=== PATIENT | female | born 1975 | race Caucasian/White ===

== ENCOUNTER → 2018-03-31 | Outpatient (CLI) | payer BC | END | disposition home or self-care (01) | LOC: KCIC MRI 16:31 | DX: M51.36 Other intervertebral disc degeneration, lumbar region (principal); M48.061 Spinal stenosis, lumbar region without neurogenic claudication; M25.78 Osteophyte, vertebrae | CPT/HCPCS: 72148 ==

== ENCOUNTER → 2018-04-15 | Outpatient (CLI) | payer BC ==
[2017-02-03 23:06] VITALS: BP 121/73
[~2018-04-15] MED LIST: CLON1TAB PO; FLUO40CA9 PO; HYDR-971 PO; OMEP20CA9 PO; ONDA4TAB10 PO; OXYC1TAB7 PO
[2018-04-15 12:20] LABS: BASO % 1 % (0-3); EOS # 0.1 x10^3/uL (0.0-0.7); EOS % 3 % (0-3); HEMATOCRIT 39.7 % (36.0-47.0); LYMPH % 42 % (24-48); MEAN CORPUSCULAR HEMOGLOBIN 36 pg (25-35); MEAN CORPUSCULAR HGB CONC 35 g/dL (31-37); MEAN CORPUSCULAR VOLUME 102 fL (79-100); MONO # 0.4 x10^3/uL (0.0-1.1); MONO % 8 % (0-9); NEUT # 2.2 x10^3uL (1.8-7.7); NEUT % 46 % (31-73); PLATELET COUNT 234 x10^3/uL (140-400); RED BLOOD COUNT 3.91 x10^6/uL (3.50-5.40); RED CELL DISTRIBUTION WIDTH 12.7 % (11.5-14.5); WHITE BLOOD COUNT 4.8 x10^3/uL (4.0-11.0)
[2018-04-15 12:43] LABS: ALBUMIN 3.2 g/dL (3.4-5.0); CALCIUM 8.4 mg/dL (8.5-10.1); GFR 61.4; POTASSIUM 3.7 mmol/L (3.5-5.1); TOTAL BILIRUBIN 0.5 mg/dL (0.2-1.0); TOTAL PROTEIN 6.3 g/dL (6.4-8.2)
== END | disposition home or self-care (01) ==
LOC: SURGPAT 11:45 → MERGE 13:30
PROVIDERS: ATTEND Neurological Surgery
DX: Z01.818 Encounter for other preprocedural examination (principal); M51.16 Intervertebral disc disorders with radiculopathy, lumbar region
CPT/HCPCS: 36415; 80053; 85025; 87641

== ENCOUNTER → 2018-04-20 | Day surgery (SDC) | payer BC ==
--- NOTE | 2018-04-15 14:19 | PREOP HP ---
DATE OF SERVICE: 04/20/2018. ANTICIPATED DATE OF SURGERY: 04/20/2018. HISTORY OF PRESENT ILLNESS: The patient is a pleasant 42-year-old who I have seen in the past related to her cervical surgery issues. She reports that beginning 2 months ago, she began to develop significant lower back pain which radiates in her left buttock and posterior thigh and leg. She notes numbness in the lateral aspect of the plantar surface of her left foot. She says her left foot and left leg feel heavy. She says she was getting out of bed and developed acute pain. That pain, if anything, has slowly worsened. She rates it as a 7-8/10. Virtually any activity markedly increases her pain. She has difficulty finding a comfortable position. She has been taking tramadol, without any benefit. She tried massages and heat without benefit. She has been resting in bed considerably over the last month and has not improved. PAST MEDICAL HISTORY: Includes arthritis, headaches, psychiatric care, tonsillitis and head and neck injury. PAST SURGICAL HISTORY: in 1984; in 1999; hysterectomy in 2002; ACDF, C5-C6, 2008 and cholecystectomy in 2006. FAMILY HISTORY: Cancer, diabetes, hypertension and spine problems. SOCIAL HISTORY: Employed at the [employer]. Current smoker. Drinks alcohol 1-2 times per week. Soda and tea daily. ALLERGIES: PERCOCET, ADHESIVE TAPE, NICKEL AND DEMEROL. CURRENT MEDICATIONS: Prozac, Klonopin, tramadol and Prilosec. REVIEW OF SYSTEMS: A 12-point review of systems was obtained and is noncontributory, except for that mentioned above. PHYSICAL EXAMINATION: NEUROSURGERY EXAMINATION: GENERAL APPEARANCE: Alert, pleasant, in [id number] distress. HEENT: Head normocephalic and atraumatic. SKIN: Warm and dry. MUSCULOSKELETAL: Lumbar paraspinal muscle bulk is normal, restricted range of motion of lumbar spine, moderate tenderness of lower lumbar spine with palpation, normal range of motion of the lower extremities bilaterally. EXTREMITIES: No clubbing, cyanosis or edema. NEUROLOGIC: Alert and oriented x 3, normal recent and remote memory, strength 5/5 in bilateral lower extremities. Sensory is intact to light touch in bilateral lower extremities, except for decrease in the lateral aspect of her left foot and the plantar surface of her left foot; reflexes are present and symmetric in lower extremities bilaterally, except for an absent left ankle jerk; markedly positive straight leg raising on the left, relieved by Lasegue's maneuver; negative straight leg raising on the right and antalgic gait favoring her left leg. IMAGING: I reviewed the lumbar MRI scan from 03/2018. The principal abnormality is at L5-S1, where there is a very large disc extrusion and possible disc sequestration, extending below the intervertebral disc space centrally and in the left lateral recess. The disc herniation is greater than 2 cm in transverse dimensions. There is severe central canal stenosis as well as severe left stenosis. Because of the size of the herniation, there is also contact on the descending right S2 and S3 nerve roots. ASSESSMENT: 1. Intervertebral disc disorders with radiculopathy, lumbosacral region. 2. Spinal stenosis of, lumbosacral region. PLAN: The patient is markedly symptomatic with left lumbar radiculopathy from a very large disc extrusion at L5-S1. Based on the size of her herniation, I do not feel she would improve significantly with epidural steroid injections or even tolerate lumbar physical therapy. My recommendation at this point is that she undergo lumbar microsurgery at L5-S1 to remove the large herniation to decompress the spinal canal with lumbar microdiscectomy. I did discuss this with her in detail. I outlined the risk of surgery and I explained that she would have a higher risk of nerve root injury or possible bowel or bladder injury based on the size of the herniation. I outlined the expected postoperative course. She understands. We will move forward and make arrangements for her. DOMINIQUE RANDLE MD DR: GEOVANNA/eric JOB#: [id number] / [id number] PEARL
[~2018-04-20] VITALS: Ht 154.9 cm; Wt 81.6 kg
[~2018-04-20] MED LIST changes: +0.9 % SODIUM CHLORIDE 20 ML VIAL. IJ ONE; +BACITRACIN 50,000 UNIT in IV NORMAL SALINE 1000ML BAG 1,000 ML IRR ONE; +BUPIVAC MPF-EPI 0.5%-1:200000 30 ML VIAL. INJ ONE; +DESFLURANE > 120 MINUTES IH ONE; +DEXAMETHASONE SOD PHOS 20 MG/5 ML VIAL. ONE; +DOCU-109 PO; +GELATIN SPONGE SIZE 100. ONE; +GLYCOPYRROLATE 1 MG/5 ML VIAL. ONE; +HYDROcodone/APAP 5/325MG 1 TAB TABLET PO PRN; +IV RINGERS,LACTATED 1000ML 1,000 ML IV SCH; +KETOROLAC 60 MG/2 ML INJ FOR OR. ONE; +LIDOCAINE 1% PF 2 ML VIAL. ID PRN; +LIDOCAINE 2% PF Vial for OR 5 ML VIAL. ONE; +MIDAZOLAM HCL/PF 2 MG/2 ML VIAL. ONE; +MINERAL OIL/PETROLATUM,WHITE OPHTH OINT 3.5GM TUBE. ONE; +NEOSTIGMINE METHYLSULFATE 5 MG/5 ML SYRINGE. ONE; +ONDANSETRON PF 4 MG/2 ML VIAL. IV PRN; +ONDANSETRON PF 4 MG/2 ML VIAL. ONE; +PHENYLEPHRINE 10 MG/ML VIAL. ONE; +PHENYLEPHRINE in 0.9% NACL PF 1 MG/10 ML SYRINGE. IV ONE; +PROPOFOL 20 ML IV ONE; +PROPOFOL 50 ML IV ONE; +REMIFENTANIL 2 MG VIAL. IV ONE; +ROCURONIUM 50 MG/5 ML VIAL. ONE; +THROMBIN TOPICAL 20,000 UNIT SPRAY.SYRN KIT TP ONE; +ceFAZolin 2GM PREMIX 2 GM/50 ML BAG IV ONE; +fentaNYL PF VIAL 100 MCG/2 ML VIAL ONE
--- NOTE | 2018-04-20 10:30 | PREOP HP ---
duplicate DOMINIQUE Kee RANDLE MD DR: Hector JOB#: [id number] / [id number] PEARL
--- NOTE | 2018-04-20 14:42 | DISCH ---
DISCHARGE INSTRUCTIONS Condition on Discharge Condition on Discharge: Stable Activity After Discharge Activity Instructions for Disc: Activity as tolerated, Avoid exertion Other activity instructions: no driving for a Bathing Instructions: Shower-keep dressing dry Lifting Instructions after Dis: No heavy lifting, No pulling or pushing, Do not lift >10 pounds Exercise Instruction after Dis: Exercise per therapy Driving Instructions after Dis: Other, see below Weight Bearing Status after Di: As tolerated Diet after Discharge Diet after Discharge: Regular Diet Texture: Regular Swallowing Supervision: None needed Wound Incision Care Wound/Incision Care: Ice to area for comfort, May get incision wet Other wound/incision instructi: may remove dressing in 48 hrs if dry, then may shower- no soaking Contacting the DRDelphine after DC Call your doctor for: Concerns you may have Follow-Up Follow up with: Dr. Randle's nurse in 2 weeks [phone] Treatment/Equipment after DC Adaptive Equipment Issued: None DOMINIQUE RANDLE MD Apr 20, 2018 14:42
--- NOTE | 2018-04-20 16:17 | OP ---
DATE OF SURGERY: 04/20/2018 PREOPERATIVE DIAGNOSES: Herniated lumbar disc, L5-S1 left with severe left lumbar radiculopathy. POSTOPERATIVE DIAGNOSIS: Herniated lumbar disc, L5-S1 left with severe left lumbar radiculopathy. OPERATION PERFORMED: Hemilaminotomy and microdiscectomy L5-S1, left. The operation was done with EMG monitoring, fluoroscopy, microscopic dissection. SURGEON: Shmuel Randle M.D. GUEST SERVICE MANAGER: ABIMBOLA Beauchamp assisted with surgery. She assisted with the exposure, the microdiscectomy as well as closure. OPERATIVE INDICATIONS: The patient is a very pleasant 42-year-old who developed severe intractable back and left leg pain. On imaging studies, she was found to have a very large extruded fragment, which occupied about 50% of the canal at L5-S1 and extended inferiorly. I recommended lumbar microsurgery. I spoke about the surgery and the risks, technique and outlined the risks carefully and methodically for her. She and her father understood well. She wished to go ahead. DESCRIPTION OF PROCEDURE: Following general endotracheal anesthesia, she was positioned prone on the [place] table. Lumbar region prepped and draped in the standard fashion. KARUNA hose and AV impulse boots were applied for DVT prophylaxis. The microscope was draped. Fluoroscopy was draped and brought into the field. Monitoring was established. Ancef 2 grams was given less than 1 hour prior the initiation of the surgery. Under fluoroscopic guidance, a midline incision was made directly over the L5-S1 interspace. I carried this slightly further inferiorly to allow for increased inferior exposure. I dissected down to skin and subcutaneous tissue, reflected the paraspinal muscles and placed a retractor, confirmed my position fluoroscopically, brought in the microscope during this time and used microscopic technique from here forward. I burred down a generous hemilaminotomy. I made a very large foraminotomy and carried my exposure quite far inferiorly over the S1 region. I also created some lateral exposure just above the S1 pedicle and then peeled away the thickened ligamentum flavum and trimmed this away from medial to lateral and exposed the dura and the exiting root. I gently retracted the root medially. There was considerable scarring along with some very large epidural veins, which I coagulated and I created an exposure on the disc inferiorly. I gently reusing the nerve, retracted it medially and then began to piecemeal remove multiple small fragments, which allowed better exposure again with gentle retraction and then, I removed 3 large disc fragments that fully decompress the entire region. One of these came up from inferiorly and fully decompressed the region. I then incised the annulus, performed a diskectomy with pituitary rongeurs and fully decompressing this region medially. There was some calcified disc, which was bulging posteriorly, but the main bulk of the disc was removed and the dura relaxed quite nicely. I irrigated copiously with antibiotic solution, explored carefully and assured myself there were no retained fragments. We closed the wound then in layers with absorbable suture after excellent hemostasis had been obtained. The skin was closed with 4-0 subcuticular stitch. The operation went very well and the patient was awakened uneventfully. I was quite pleased with the surgery. SHMUEL RANDLE MD DR: GEOVANNA/eric JOB#: [id number] / [id number] PEARL
[2018-04-20 16:45] VITALS: BP 119/82
== END | disposition home or self-care (01) ==
LOC: SURG 10:54 → MERGE 12:30
PROVIDERS: ATTEND Neurological Surgery
DX: M51.17 Intervertebral disc disorders with radiculopathy, lumbosacral region (principal); M48.061 Spinal stenosis, lumbar region without neurogenic claudication; J44.9 Chronic obstructive pulmonary disease, unspecified; M19.90 Unspecified osteoarthritis, unspecified site; F32.9 Major depressive disorder, single episode, unspecified; K21.9 Gastro-esophageal reflux disease without esophagitis; F41.9 Anxiety disorder, unspecified; F17.210 Nicotine dependence, cigarettes, uncomplicated; Z90.49 Acquired absence of other specified parts of digestive tract; Z90.710 Acquired absence of both cervix and uterus; Z90.722 Acquired absence of ovaries, bilateral; Z98.890 Other specified postprocedural states
CPT/HCPCS: 63030; 76000; 97161; J0690; J1100; J1885; J2001; J2250; J2370; J2405; J2704; J2710; J3010; J3490; J7030; J7120; A7015

== ENCOUNTER → 2018-05-16 | Outpatient (CLI) | payer BC ==
[2018-05-09 11:00] VITALS: BP 112/47
[~2018-05-16] MED LIST changes: -0.9 % SODIUM CHLORIDE 20 ML VIAL. IJ ONE; -BACITRACIN 50,000 UNIT in IV NORMAL SALINE 1000ML BAG 1,000 ML IRR ONE; -BUPIVAC MPF-EPI 0.5%-1:200000 30 ML VIAL. INJ ONE; +CLON0.5T11 PO; +DAPT350V IV; -DESFLURANE > 120 MINUTES IH ONE; -DEXAMETHASONE SOD PHOS 20 MG/5 ML VIAL. ONE; -GELATIN SPONGE SIZE 100. ONE; -GLYCOPYRROLATE 1 MG/5 ML VIAL. ONE; -HYDROcodone/APAP 5/325MG 1 TAB TABLET PO PRN; -IV RINGERS,LACTATED 1000ML 1,000 ML IV SCH; -KETOROLAC 60 MG/2 ML INJ FOR OR. ONE; -LIDOCAINE 1% PF 2 ML VIAL. ID PRN; -LIDOCAINE 2% PF Vial for OR 5 ML VIAL. ONE; +LINE600T PO; -MIDAZOLAM HCL/PF 2 MG/2 ML VIAL. ONE; -MINERAL OIL/PETROLATUM,WHITE OPHTH OINT 3.5GM TUBE. ONE; -NEOSTIGMINE METHYLSULFATE 5 MG/5 ML SYRINGE. ONE; -ONDANSETRON PF 4 MG/2 ML VIAL. IV PRN; -ONDANSETRON PF 4 MG/2 ML VIAL. ONE; -PHENYLEPHRINE 10 MG/ML VIAL. ONE; -PHENYLEPHRINE in 0.9% NACL PF 1 MG/10 ML SYRINGE. IV ONE; -PROPOFOL 20 ML IV ONE; -PROPOFOL 50 ML IV ONE; -REMIFENTANIL 2 MG VIAL. IV ONE; -ROCURONIUM 50 MG/5 ML VIAL. ONE; +SULF-143 PO; -THROMBIN TOPICAL 20,000 UNIT SPRAY.SYRN KIT TP ONE; -ceFAZolin 2GM PREMIX 2 GM/50 ML BAG IV ONE; -fentaNYL PF VIAL 100 MCG/2 ML VIAL ONE
== END | disposition home or self-care (01) ==
LOC: PMGWOUND 13:02
PROVIDERS: ATTEND Emergency Medicine Undersea and Hyperbaric Medicine
DX: T81.31XD Disruption of external operation (surgical) wound, not elsewhere classified, subsequent encounter (principal); M19.90 Unspecified osteoarthritis, unspecified site; F41.9 Anxiety disorder, unspecified; F17.210 Nicotine dependence, cigarettes, uncomplicated; F31.9 Bipolar disorder, unspecified; K21.9 Gastro-esophageal reflux disease without esophagitis; J44.9 Chronic obstructive pulmonary disease, unspecified; E66.9 Obesity, unspecified; Z68.33 Body mass index [BMI] 33.0-33.9, adult; Z90.49 Acquired absence of other specified parts of digestive tract; Z90.710 Acquired absence of both cervix and uterus; Z85.41 Personal history of malignant neoplasm of cervix uteri; Y83.8 Other surgical procedures as the cause of abnormal reaction of the patient, or of later complication, without mention of misadventure at the time of the procedure
CPT/HCPCS: 99205

== ENCOUNTER 2018-05-19 10:16 | Inpatient (IN) | payer BC ==
[~2018-05-19] VITALS: Ht 154.9 cm; Wt 80.5 kg
[~2018-05-19 10:16] MED LIST changes: -DAPT350V IV
[2018-05-19] MEDS ORDERED: ACETAMINOPHEN 325 MG TABLET. PO PRN (14:45)
[2018-05-19] MEDS ORDERED: NALOXONE 0.4 MG/ML VIAL. IV PRN (14:45)
[2018-05-19] MEDS ORDERED: CALCIUM CARBONATE 500 MG TAB.CHEW PO PRN (14:45)
[2018-05-19] MEDS ORDERED: HYDROcodone/APAP 5/325MG 1 TAB TABLET PO PRN (14:45)
[2018-05-19] MEDS ORDERED: ONDANSETRON ODT 4 MG TAB.RAPDIS. PO PRN (14:45)
[2018-05-19] MEDS ORDERED: 0.9 % SODIUM CHLORIDE 10 ML DISP.SYRIN. IV PRN (14:45)
[2018-05-19] MEDS ORDERED: diphenhydrAMINE HCL 25 MG CAPSULE PO PRN (14:45)
[2018-05-19] MEDS ORDERED: MAG HYDROX/ALUMINUM HYD/SIMETH 30 ML ORAL.SUSP PO PRN (14:45)
[2018-05-19] MEDS ORDERED: diphenhydrAMINE 50 MG/ML VIAL IV PRN (14:45)
[2018-05-19 15:00] VITALS: BP 112/65
[2018-05-19 15:29] LABS: BASO % 1 % (0-3); EOS # 0.1 x10^3/uL (0.0-0.7); EOS % 1 % (0-3); HEMATOCRIT 35.5 % (36.0-47.0); HEMOGLOBIN 12.2 g/dL (12.0-15.5); LYMPH # 1.5 x10^3/uL (1.0-4.8); LYMPH % 28 % (24-48); MEAN CORPUSCULAR HEMOGLOBIN 36 pg (25-35); MEAN CORPUSCULAR HGB CONC 35 g/dL (31-37); MEAN CORPUSCULAR VOLUME 103 fL (79-100); MONO # 0.3 x10^3/uL (0.0-1.1); MONO % 5 % (0-9); NEUT # 3.6 x10^3uL (1.8-7.7); NEUT % 65 % (31-73); PLATELET COUNT 212 x10^3/uL (140-400); RED BLOOD COUNT 3.44 x10^6/uL (3.50-5.40); RED CELL DISTRIBUTION WIDTH 13.2 % (11.5-14.5); WHITE BLOOD COUNT 5.5 x10^3/uL (4.0-11.0)
[2018-05-19 15:44] LABS: CALCIUM 9.1 mg/dL (8.5-10.1); CREATININE 0.8 mg/dL (0.6-1.0); GFR 79.4; POTASSIUM 3.6 mmol/L (3.5-5.1)
[2018-05-19] MEDS ORDERED: VANCOMYCIN PER PHARMACY MC PRN (15:45)
--- NOTE | 2018-05-19 15:54 | RAD ---
CT of the abdomen and pelvis without contrast, 05/19/2018: HISTORY: Postop infection Noncontrast scans were obtained and compared to a study from 05/05/2018. There is a vacuum disc phenomena with disc space narrowing and marginal spurring at L5-S1. There is a laminectomy defect on the left at L5-S1. There is a persistent medium density material within the left side of the spinal canal at the disc level extending inferiorly, obscuring the normal epidural fat. This density extends into the laminectomy defect. The proximal left S1 nerve root sleeve cannot be visualized within this process. This again may represent postsurgical granulation tissue, hemorrhage or a residual disc fragment. Streaky densities in the subcutaneous soft tissues posteriorly have improved. There is no discrete fluid collection seen in this region to suggest a drainable abscess. No significant posterior disc protrusion, central spinal stenosis or foraminal stenosis is seen at L1-2, L2-3 or L3-4. At L4-5 there is mild broad-based posterior disc bulging. There is mild posterior spurring, worse on the right. There is posterior ligamentous thickening due to facet joint arthropathy. The combination of findings is causing moderate inferior foraminal narrowing on the right and mild narrowing on the left. There is borderline narrowing of the central spinal canal. IMPRESSION: 1. Unchanged postsurgical findings on the left at L5-S1 as described above. No discrete drainable abscess is evident. 2. Improving subcutaneous inflammation posteriorly. PQRS Compliance Statement: One or more of the following individualized dose reduction techniques were utilized for this examination: 1. Automated exposure control 2. Adjustment of the mA and/or kV according to patient size 3. Use of iterative reconstruction technique Electronically signed by: Tony Cheung MD (05/19/2018 3:51 PM) [facility]
[2018-05-19] MEDS: CEFEPIME HCL IV Push 2 GM VIAL. IVP SCH ×2 (16:00→22:00)
[2018-05-19] MEDS ORDERED: VANCOMYCIN 2 GM in IV NORMAL SALINE 500ML BAG 500 ML IV ONE (16:00)
[2018-05-19 16:14] LABS: ALBUMIN 3.6 g/dL (3.4-5.0); DIRECT BILIRUBIN 0.1 mg/dL (0.0-0.2); TOTAL BILIRUBIN 0.4 mg/dL (0.2-1.0); TOTAL PROTEIN 6.8 g/dL (6.4-8.2)
[2018-05-19] MEDS: clonazePAM 0.5 MG TABLET PO PRN (16:18)
[2018-05-19 16:33] LABS: C-REACTIVE PROTEIN 1.8 mg/L (0-3.3)
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
[2018-05-19] MEDS ORDERED: NICOTINE 14MG PATCH. TD PRN (19:00)
[2018-05-19 19:20] VITALS: BP 111/68
[2018-05-19] MEDS: ZOLPIDEM 5 MG TABLET. PO PRN (20:09)
[2018-05-19] MEDS: HYDROcodone/APAP 5/325MG 1 TAB TABLET PO PRN (20:13)
[2018-05-19] MEDS: DOCUSATE SODIUM 100 MG CAPSULE. PO SCH (20:16)
[2018-05-19] MEDS ORDERED: LINEZOLID 600 MG PO SCH (21:00)
[2018-05-19] MEDS ORDERED: CEFEPIME HCL 2 GM in IV DEXTROSE 5% 100ML 100 ML IV SCH (22:00)
[2018-05-19 23:14] VITALS: BP 100/59
[2018-05-20] MEDS: HYDROcodone/APAP 5/325MG 1 TAB TABLET PO PRN ×4 (00:55→18:45)
[2018-05-20 03:18] VITALS: BP 93/56
[2018-05-20] MEDS: CEFEPIME HCL IV Push 2 GM VIAL. IVP SCH (06:00)
[2018-05-20 07:00] VITALS: BP 115/66
[2018-05-20] MEDS: FLUoxetine HCL 20 MG CAPSULE PO SCH (08:09)
[2018-05-20] MEDS: PANTOPRAZOLE 40 MG TABLET.DR. PO SCH (08:09)
[2018-05-20] MEDS: DOCUSATE SODIUM 100 MG CAPSULE. PO SCH ×2 (08:10→21:52)
[2018-05-20] MEDS ORDERED: VANCOMYCIN 2 GM in IV NORMAL SALINE 500ML BAG 500 ML IV ONE (09:00)
[2018-05-20 11:00] VITALS: BP 106/58
[2018-05-20] MEDS: clonazePAM 0.5 MG TABLET PO PRN ×2 (12:12→20:09)
--- NOTE | 2018-05-20 12:38 | PDOC ---
Provider Note Provider Note Pt seen and dictated ID CONSULT [id number] OK TO DC HOME Midline today Weekly labs CBC/BUN/Creat/ESR/CRP while on antibiotics Daptomycin IV 6mg /kg /day for 2-3 weeks Can be dc home if ok with neurosurgery Appt with us on 06/02 at 3 pm D/W Dr Harley D/W her father at length JOSE MCCLOUD MD May 20, 2018 12:38
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
[2018-05-20 14:50] VITALS: BP 102/44
--- NOTE | 2018-05-20 16:24 | DISCH ---
DISCHARGE WITH HOME HEALTH DISCHARGE INFORMATION: Condition on Discharge: Stable CODE STATUS: Code Status: Full HOME HEALTH: Face to Face: I certify this patient is under my care and that I, or a nurse practitioner or physician's student assistant working with me, had a face to face encounter that meets the physician face to face encounter requirements with this patient on []. Group Home For: IV Infusion Therapy POST DISCHARGE ORDERS: Activity Instructions for Disc: Activity as tolerated, Avoid exertion Weight Bearing Status after Di: As tolerated Bathing Instructions: Shower-keep dressing dry DIET AFTER DISCHARGE: Regular Wound/Incision Care: Ice to area for comfort, Change dressing, Reinforce dressing PRN Other wound/incision instructi: dressing changes daily and as needed FOLLOW-UP: Follow up with: Dr. Randle next week [phone] Follow Up With: Dr. Vargas 10- TREATMENT/EQUIPMENT ORDERS: Adaptive Equipment Issued: None CERTIFICATION STATEMENT: Certification Statement: Certification Statement: Based on the above finding, I certify that this patient is confined to the home and needs intermittent retirement care, physical therapy and/or speech therapy, or continues to need occupational therapy.~ This patient is under my care, and I have initiated the establishment of the plan of care.~ This patient will be followed by myself or a community physician who will periodically review the plan of care. Home Meds Active Scripts Daptomycin (Daptomycin) 350 Mg Vial, 350 MG IV DAILY for 60 Days, #60 EACH Prov:DOMINIQUE RANDLE MD 05/20/18 Docusate Sodium (COLACE) 100 Mg Capsule, 100 MG PO BID, #60 CAP Prov:DOMINIQUE RANDLE MD 04/20/18 Hydrocodone/Apap 5-325 (NORCO 5-325 TABLET) 1 Each Tablet, 1 TAB PO PRN Q6HRS PRN for PAIN, #20 TAB 0 Refills Prov:SHER SAMUEL DO 02/03/17 Reported Medications Clonazepam (CLONAZEPAM) 0.5 Mg Tablet, 1 TAB PO PRN TID, #90 TAB 05/05/18 Omeprazole (OMEPRAZOLE) 20 Mg Capsule.dr, 20 MG PO DAILY, CAP 04/15/18 Fluoxetine Hcl (PROZAC) 40 Mg Capsule, 40 MG PO DAILY, CAP 04/15/18 Discontinued Scripts Linezolid (ZYVOX) 600 Mg Tablet, 600 MG PO BID, #28 TAB Prov:DOMINIQUE RANDLE MD 05/09/18 DOMINIQUE RANDLE MD May 20, 2018 16:24
[2018-05-20] MEDS ORDERED: DAPT350V IV (16:26)
--- NOTE | 2018-05-20 17:25 | PDOC ---
PROGRESS NOTES Subjective Subjective resting in bed awaiting Midline IV cath back pain, controlled with medication still some leg numbness but pain is resolved Objective Objective Vital Signs Date Time Temp Pulse Resp B/P (MAP) Pulse Ox O2 Delivery O2 Flow Rate FiO2 05/20/18 14:50 97.5 50 18 102/44 (63) 96 Room Air 97.5 Intake and Output 05/20/18 07:00 Intake Total 720 ml Balance 720 ml Intake Oral 720 ml # Voids 7 Physical Exam General: Alert, Oriented X3, Cooperative, No acute distress Skin: Other (Dressing intact) Plan Plan of Care awaiting midline cath, planned for this evening december dc after this is placed will have HH for IV antibiotics per ID she will follow up in our office next week Comment Review of Relevant I have reviewed the following items steff (where applicable) has been applied. Labs Laboratory Tests Test 05/19/18 15:00 White Blood Count 5.5 x10^3/uL (4.0-11.0) Red Blood Count 3.44 x10^6/uL (3.50-5.40) Hemoglobin 12.2 g/dL (12.0-15.5) Hematocrit 35.5 % (36.0-47.0) Mean Corpuscular Volume 103 fL (79-100) Mean Corpuscular Hemoglobin 36 pg (25-35) Mean Corpuscular Hemoglobin Concent 35 g/dL (31-37) Red Cell Distribution Width 13.2 % (11.5-14.5) Platelet Count 212 x10^3/uL (140-400) Neutrophils (%) (Auto) 65 % (31-73) Lymphocytes (%) (Auto) 28 % (24-48) Monocytes (%) (Auto) 5 % (0-9) Eosinophils (%) (Auto) 1 % (0-3) Basophils (%) (Auto) 1 % (0-3) Neutrophils # (Auto) 3.6 x10^3uL (1.8-7.7) Lymphocytes # (Auto) 1.5 x10^3/uL (1.0-4.8) Monocytes # (Auto) 0.3 x10^3/uL (0.0-1.1) Eosinophils # (Auto) 0.1 x10^3/uL (0.0-0.7) Basophils # (Auto) 0.0 x10^3/uL (0.0-0.2) Erythrocyte Sedimentation Rate 10 (0-25) Sodium Level 140 mmol/L (136-145) Potassium Level 3.6 mmol/L (3.5-5.1) Chloride Level 102 mmol/L (98-107) Carbon Dioxide Level 27 mmol/L (21-32) Anion Gap 11 (6-14) Blood Urea Nitrogen 11 mg/dL (7-20) Creatinine 0.8 mg/dL (0.6-1.0) Estimated GFR (Cockcroft-Gault) 79.4 Glucose Level 120 mg/dL (70-99) Calcium Level 9.1 mg/dL (8.5-10.1) Total Bilirubin 0.4 mg/dL (0.2-1.0) Direct Bilirubin 0.1 mg/dL (0.0-0.2) Aspartate Amino Transf (AST/SGOT) 9 U/L (15-37) Alanine Aminotransferase (ALT/SGPT) 22 U/L (14-59) Alkaline Phosphatase 66 U/L (46-116) C-Reactive Protein, Quantitative 1.8 mg/L (0-3.3) Total Protein 6.8 g/dL (6.4-8.2) Albumin 3.6 g/dL (3.4-5.0) Medications Current Medications Acetaminophen (Tylenol) 650 mg PRN Q6HRS PRN PO MILD PAIN / TEMP; Start at 14:45 Al Hydroxide/Mg Hydroxide (Mylanta Plus Xs) 30 ml PRN Q3HRS PRN PO HEARTBURN / GAS; Start 05/19/18 at 14:45 Calcium Carbonate/ Glycine (Tums) 500 mg PRN Q3HRS PRN PO INDIGESTION; Start at 14:45 Diphenhydramine HCl (Benadryl) 25 mg PRN Q6HRS PRN PO ITCHING; Start 05/19/18 at 14:45 Diphenhydramine HCl (Benadryl) 25 mg PRN Q6HRS PRN IV ITCHING; Start 05/19/18 at 14:45 Zolpidem Tartrate (Ambien) 5 mg PRN QHS PRN PO INSOMNIA, MAY REPEAT IN 1HR Last administered on 05/19/18at 20:09; Start 05/19/18 at 14:45 Naloxone HCl (Narcan) 0.1 mg PRN Q2MIN PRN IV ADMIN; Start 05/19/18 at 14:45 Sodium Chloride (Normal Saline Flush) 3 ml QSHIFT PRN IV AFTER MEDS AND BLOOD DRAWS; Start 05/19/18 at 14:45 Acetaminophen/ Hydrocodone Bitart (Lortab 5/325) 1 tab PRN Q4HRS PRN PO MILD PAIN; Start 05/19/18 at 14:45 Acetaminophen/ Hydrocodone Bitart (Lortab 5/325) 2 tab PRN Q4HRS PRN PO MODERATE PAIN, SEVERE PAIN Last administered on 05/20/18at 12:12; Start 05/19/18 at 14:45 Clonazepam (KlonoPIN) 0.5 mg PRN TID PRN PO ANXIETY / AGITATION Last administered on 05/20/18at 12:12; Start 05/19/18 at 14:45 Docusate Sodium (Colace) 100 mg BID PO ; Start 05/19/18 at 21:00 Fluoxetine HCl (PROzac) 40 mg DAILY PO Last administered on 05/20/18at 08:09; Start 05/20/18 at 09:00 Non-Formulary Medication (Linezolid (Zyvox)) 600 mg BID PO ; Start 05/19/18 at 21:00; Status UNV Pantoprazole Sodium (Protonix) 40 mg DAILYAC PO Last administered on 05/20/18at 08:09; Start 05/20/18 at 07:30 Ondansetron HCl (Zofran Odt) 4 mg PRN Q8HRS PRN PO NAUSEA/VOMITING; Start 05/19 at 14:45 Vancomycin HCl 1 gm/Sodium Chloride 250 ml @ 250 mls/hr Q12H IV ; Start at 21:00; Stop 05/20/18 at 21:00; Status DC Cefepime HCl 2 gm/ Dextrose 100 ml @ 200 mls/hr Q8HRS IV ; Start 05/19/18 at 22 :00; Status UNV Cefepime HCl (Maxipime) 2 gm Q8HRS IVP ; Start 05/19/18 at 16:00; Stop 05/20/18 at 12:16; Status DC Vancomycin HCl 2 gm/Sodium Chloride 500 ml @ 250 mls/hr 1X ONCE IV ; Start at 16:00; Stop 05/20/18 at 12:16; Status DC Vancomycin HCl (Vanco Per Pharmacy) 1 each PRN DAILY PRN MC SEE COMMENTS Last administered on 05/19/18at 18:46; Start 05/19/18 at 15:45; Stop 05/20/18 at 12:21 ; Status DC Nicotine (Nicoderm Cq 14mg) 1 patch PRN DAILY PRN TD SMOKING CESSATION Last administered on 05/20/18at 08:53; Start 05/19/18 at 19:00 Vancomycin HCl 2 gm/Sodium Chloride 500 ml @ 250 mls/hr 1X ONCE IV ; Start at 09:00; Stop 05/20/18 at 12:16; Status DC Daptomycin 480 mg/ Sodium Chloride 50 ml @ 100 mls/hr Q24H IV ; Start 05/20/18 at 14:00 Lactobacillus Rhamnosus (Culturelle) 1 cap BID PO ; Start 05/20/18 at 21:00 Influenza Virus Vaccine (Afluria Trivalent 8971-7530 Syringe) 0.5 ml ONCE ONCE VAX IM Last administered on 05/20/18at 15:45; Start 05/20/18 at 14:30; Stop at 14:31; Status DC Active Scripts Active Zyvox (Linezolid) 600 Mg Tablet 600 Mg PO BID Colace (Docusate Sodium) 100 Mg Capsule 100 Mg PO BID [place] 5-325 Tablet (Acetaminophen/Hydrocodone Bitart) 1 Each Tablet 1 Tab PO PRN Q6HRS PRN Reported Clonazepam 0.5 Mg Tablet 1 Tab PO PRN TID Omeprazole 20 Mg Capsule. 20 Mg PO DAILY Prozac (Fluoxetine Hcl) 40 Mg Capsule 40 Mg PO DAILY Vitals/I & O Vital Sign - Last 24 Hours 05/19/18 05/19/18 05/19/18 05/19/18 19:20 20:00 20:13 23:14 Temp 98.0 98.1 98.0 98.1 Pulse 60 61 Resp 18 20 18 B/P (MAP) 111/68 (82) 100/59 (73) Pulse Ox 98 98 97 O2 Delivery Room Air Room Air Room Air Room Air 9/21/18 05/20/18 05/20/18 05/20/18 00:55 01:55 03:18 07:00 Temp 97.7 97.6 97.7 97.6 Pulse 60 63 Resp B/P (MAP) 93/56 (68) 115/66 (82) Pulse Ox 97 98 100 O2 Delivery Room Air Room Air Room Air 05/20/18 05/20/18 05/20/18 05/20/18 07:45 08:10 11:00 12:12 Temp 98.1 98.1 Pulse 52 Resp 16 B/P (MAP) 106/58 (74) Pulse Ox 98 97 97 O2 Delivery Room Air Room Air Room Air Room Air 05/20/18 05/20/18 13:17 14:50 Temp 97.5 97.5 Pulse 50 Resp 18 B/P (MAP) 102/44 (63) Pulse Ox 97 96 O2 Delivery Room Air Room Air Intake and Output 05/19/18 05/19/18 05/20/18 15:00 23:00 07:00 Intake Total 720 ml Balance 720 ml DOMINIQUE RANDLE MD May 20, 2018 17:25
[2018-05-20 19:00] VITALS: BP 110/59
[2018-05-20] MEDS: ZOLPIDEM 5 MG TABLET. PO PRN ×2 (20:12→21:52)
[2018-05-20] MEDS ORDERED: IBUPROFEN 400 MG TABLET. PO PRN (20:45)
[2018-05-20] MEDS ORDERED: VANCOMYCIN 1 GM in IV NORMAL SALINE 250ML 250 ML IV SCH (21:00)
[2018-05-20] MEDS: LACTOBACILLUS RHAMNOSUS GG 1 CAPSULE. PO SCH (21:52)
[2018-05-20] MEDS: NORMAL SALINE IV SCH (21:54)
[2018-05-20] MEDS: DAPTOMYCIN IV SCH (21:54)
--- NOTE | 2018-05-20 22:44 | RAD ---
AP portable chest radiograph 05/20/2018 Clinical History: PICC line placement. An AP erect portable digital radiograph of the chest was obtained. No previous studies are available for comparison. A right arm PICC has been placed. The tip of this catheter extends to overlie the superior vena cava. The cardiac and mediastinal silhouettes are within normal limits in size and configuration. No acute pulmonary infiltrate is seen. No pleural effusion or pneumothorax is noted. Degenerative changes are seen involving the thoracic spine and both shoulders. IMPRESSION: Interval placement of a right arm PICC. The tip of this catheter extends to overlie the superior vena cava. Electronically signed by: Jorge Luis Cota MD (05/20/2018 10:40 PM) [facility]
[2018-05-20 23:00] VITALS: BP 95/49
[2018-05-21] MEDS: HYDROcodone/APAP 5/325MG 1 TAB TABLET PO PRN ×2 (01:01→08:47)
[2018-05-21 03:00] VITALS: BP 128/57
[2018-05-21] MEDS: PANTOPRAZOLE 40 MG TABLET.DR. PO SCH (06:41)
[2018-05-21 07:00] VITALS: BP 110/40
[2018-05-21] MEDS: FLUoxetine HCL 20 MG CAPSULE PO SCH (08:44)
[2018-05-21] MEDS: LACTOBACILLUS RHAMNOSUS GG 1 CAPSULE. PO SCH (08:44)
[2018-05-21] MEDS: clonazePAM 0.5 MG TABLET PO PRN (08:44)
[2018-05-21] MEDS: DOCUSATE SODIUM 100 MG CAPSULE. PO SCH (09:00)
[2018-05-21] MEDS: NORMAL SALINE IV SCH (09:37)
[2018-05-21] MEDS: DAPTOMYCIN IV SCH (09:37)
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
[2018-05-21 11:00] VITALS: BP 120/81
--- NOTE | 2018-05-21 11:07 | PDOC ---
PROGRESS NOTES Subjective Subjective patient seen at 0915 no new complaints back pain controlled with medication Midline cath placed yesterday evening Objective Objective Vital Signs Date Time Temp Pulse Resp B/P (MAP) Pulse Ox O2 Delivery O2 Flow Rate FiO2 05/21/18 08:47 20 Room Air 05/21/18 07:00 97.7 69 110/40 (63) 98 97.7 Intake and Output 05/21/18 07:00 Intake Total 450 ml Balance 450 ml Intake Oral 400 ml IV Total 50 ml # Voids 4 Physical Exam General: Alert, Oriented X3, Cooperative, No acute distress MUSCULOSKELETAL: Other (HARO) Neuro: Other Skin: Other (dressing dry and intact) Plan Plan of Care mat wy home when IV antibiotics arranged with Home health will follow up with us next week d/w patient and father Comment Review of Relevant I have reviewed the following items steff (where applicable) has been applied. Labs Laboratory Tests Test 05/19/18 15:00 White Blood Count 5.5 x10^3/uL (4.0-11.0) Red Blood Count 3.44 x10^6/uL (3.50-5.40) Hemoglobin 12.2 g/dL (12.0-15.5) Hematocrit 35.5 % (36.0-47.0) Mean Corpuscular Volume 103 fL (79-100) Mean Corpuscular Hemoglobin 36 pg (25-35) Mean Corpuscular Hemoglobin Concent 35 g/dL (31-37) Red Cell Distribution Width 13.2 % (11.5-14.5) Platelet Count 212 x10^3/uL (140-400) Neutrophils (%) (Auto) 65 % (31-73) Lymphocytes (%) (Auto) 28 % (24-48) Monocytes (%) (Auto) 5 % (0-9) Eosinophils (%) (Auto) 1 % (0-3) Basophils (%) (Auto) 1 % (0-3) Neutrophils # (Auto) 3.6 x10^3uL (1.8-7.7) Lymphocytes # (Auto) 1.5 x10^3/uL (1.0-4.8) Monocytes # (Auto) 0.3 x10^3/uL (0.0-1.1) Eosinophils # (Auto) 0.1 x10^3/uL (0.0-0.7) Basophils # (Auto) 0.0 x10^3/uL (0.0-0.2) Erythrocyte Sedimentation Rate 10 (0-25) Sodium Level 140 mmol/L (136-145) Potassium Level 3.6 mmol/L (3.5-5.1) Chloride Level 102 mmol/L (98-107) Carbon Dioxide Level 27 mmol/L (21-32) Anion Gap 11 (6-14) Blood Urea Nitrogen 11 mg/dL (7-20) Creatinine 0.8 mg/dL (0.6-1.0) Estimated GFR (Cockcroft-Gault) 79.4 Glucose Level 120 mg/dL (70-99) Calcium Level 9.1 mg/dL (8.5-10.1) Total Bilirubin 0.4 mg/dL (0.2-1.0) Direct Bilirubin 0.1 mg/dL (0.0-0.2) Aspartate Amino Transf (AST/SGOT) 9 U/L (15-37) Alanine Aminotransferase (ALT/SGPT) 22 U/L (14-59) Alkaline Phosphatase 66 U/L (46-116) C-Reactive Protein, Quantitative 1.8 mg/L (0-3.3) Total Protein 6.8 g/dL (6.4-8.2) Albumin 3.6 g/dL (3.4-5.0) Microbiology 05/20/18 Blood Culture - Preliminary, Resulted NO GROWTH AFTER 1 DAY Medications Current Medications Acetaminophen (Tylenol) 650 mg PRN Q6HRS PRN PO MILD PAIN / TEMP; Start at 14:45 Al Hydroxide/Mg Hydroxide (Mylanta Plus Xs) 30 ml PRN Q3HRS PRN PO HEARTBURN / GAS; Start 05/19/18 at 14:45 Calcium Carbonate/ Glycine (Tums) 500 mg PRN Q3HRS PRN PO INDIGESTION; Start at 14:45 Diphenhydramine HCl (Benadryl) 25 mg PRN Q6HRS PRN PO ITCHING; Start 05/19/18 at 14:45 Diphenhydramine HCl (Benadryl) 25 mg PRN Q6HRS PRN IV ITCHING; Start 05/19/18 at 14:45 Zolpidem Tartrate (Ambien) 5 mg PRN QHS PRN PO INSOMNIA, MAY REPEAT IN 1HR Last administered on 05/20/18at 21:52; Start 05/19/18 at 14:45 Naloxone HCl (Narcan) 0.1 mg PRN Q2MIN PRN IV ADMIN; Start 05/19/18 at 14:45 Sodium Chloride (Normal Saline Flush) 3 ml QSHIFT PRN IV AFTER MEDS AND BLOOD DRAWS; Start 05/19/18 at 14:45 Acetaminophen/ Hydrocodone Bitart (Lortab 5/325) 1 tab PRN Q4HRS PRN PO MODERATE PAIN; Start 05/19/18 at 14:45 Acetaminophen/ Hydrocodone Bitart (Lortab 5/325) 2 tab PRN Q4HRS PRN PO SEVERE PAIN Last administered on 05/21/18at 08:47; Start 05/19/18 at 14:45 Clonazepam (KlonoPIN) 0.5 mg PRN TID PRN PO ANXIETY / AGITATION Last administered on 05/21/18at 08:44; Start 05/19/18 at 14:45 Docusate Sodium (Colace) 100 mg BID PO Last administered on 05/20/18at 21:52; Start 05/19/18 at 21:00 Fluoxetine HCl (PROzac) 40 mg DAILY PO Last administered on 05/21/18at 08:44; Start 05/20/18 at 09:00 Non-Formulary Medication (Linezolid (Zyvox)) 600 mg BID PO ; Start 05/19/18 at 21:00; Status UNV Pantoprazole Sodium (Protonix) 40 mg DAILYAC PO Last administered on 05/21/18at 06:41; Start 05/20/18 at 07:30 Ondansetron HCl (Zofran Odt) 4 mg PRN Q8HRS PRN PO NAUSEA/VOMITING; Start 05/19 at 14:45 Vancomycin HCl 1 gm/Sodium Chloride 250 ml @ 250 mls/hr Q12H IV ; Start at 21:00; Stop 05/20/18 at 21:00; Status DC Cefepime HCl 2 gm/ Dextrose 100 ml @ 200 mls/hr Q8HRS IV ; Start 05/19/18 at 22 :00; Status UNV Cefepime HCl (Maxipime) 2 gm Q8HRS IVP ; Start 05/19/18 at 16:00; Stop 05/20/18 at 12:16; Status DC Vancomycin HCl 2 gm/Sodium Chloride 500 ml @ 250 mls/hr 1X ONCE IV ; Start at 16:00; Stop 05/20/18 at 12:16; Status DC Vancomycin HCl (Vanco Per Pharmacy) 1 each PRN DAILY PRN MC SEE COMMENTS Last administered on 05/19/18at 18:46; Start 05/19/18 at 15:45; Stop 05/20/18 at 12:21 ; Status DC Nicotine (Nicoderm Cq 14mg) 1 patch PRN DAILY PRN TD SMOKING CESSATION Last administered on 05/20/18at 08:53; Start 05/19/18 at 19:00 Vancomycin HCl 2 gm/Sodium Chloride 500 ml @ 250 mls/hr 1X ONCE IV ; Start at 09:00; Stop 05/20/18 at 12:16; Status DC Daptomycin 480 mg/ Sodium Chloride 50 ml @ 100 mls/hr Q24H IV Last administered on 05/21/18at 09:37; Start 05/20/18 at 14:00 Lactobacillus Rhamnosus (Culturelle) 1 cap BID PO Last administered on at 08:44; Start 05/20/18 at 21:00 Influenza Virus Vaccine (Afluria Trivalent [id number] Syringe) 0.5 ml ONCE ONCE VAX IM Last administered on 05/20/18at 15:45; Start 05/20/18 at 14:30; Stop at 14:31; Status DC Ibuprofen (Motrin) 800 mg PRN Q6HRS PRN PO INFLAMMATION Last administered on at 21:52; Start 05/20/18 at 20:45 Active Scripts Active Daptomycin 350 Mg Vial 350 Mg IV DAILY 60 Days Colace (Docusate Sodium) 100 Mg Capsule 100 Mg PO BID [place] 5-325 Tablet (Acetaminophen/Hydrocodone Bitart) 1 Each Tablet 1 Tab PO PRN Q6HRS PRN Reported Clonazepam 0.5 Mg Tablet 1 Tab PO PRN TID Omeprazole 20 Mg Capsule.dr 20 Mg PO DAILY Prozac (Fluoxetine Hcl) 40 Mg Capsule 40 Mg PO DAILY Vitals/I & O Vital Sign - Last 24 Hours 05/20/18 05/20/18 05/20/18 05/20/18 12:12 14:50 18:45 19:00 Temp 97.5 98.2 97.5 98.2 Pulse 50 62 Resp 18 16 B/P (MAP) 102/44 (63) 110/59 (76) Pulse Ox 97 96 96 98 O2 Delivery Room Air Room Air Room Air Room Air 05/20/18 05/20/18 05/21/18 05/21/18 20:00 23:00 01:01 02:00 Temp 97.6 97.6 Pulse 52 Resp 16 18 B/P (MAP) 95/49 (64) Pulse Ox 96 98 O2 Delivery Room Air Room Air Room Air Room Air 05/21/18 05/21/18 05/21/18 03:00 07:00 08:47 Temp 97.5 97.7 97.5 97.7 Pulse 54 69 Resp 16 16 20 B/P (MAP) 128/57 (80) 110/40 (63) Pulse Ox 98 98 O2 Delivery Room Air Room Air Room Air Intake and Output 05/20/18 05/20/18 05/21/18 15:00 23:00 07:00 Intake Total 450 ml Balance 450 ml DOMINIQUE RANDLE MD May 21, 2018 11:07
== END 2018-05-21 12:30 | disposition home health service (06) | DRG 921 ==
LOC: 4 NORTH 14:11
PROVIDERS: ADMIT Neurological Surgery; ATTEND Neurological Surgery
PROC: 02HV33Z Insertion of Infusion Device into Superior Vena Cava, Percutaneous Approach (ICD-10-PCS; principal; 2018-05-20)
DX: T81.31XA Disruption of external operation (surgical) wound, not elsewhere classified, initial encounter (principal); F41.9 Anxiety disorder, unspecified; M19.90 Unspecified osteoarthritis, unspecified site; K21.9 Gastro-esophageal reflux disease without esophagitis; F17.200 Nicotine dependence, unspecified, uncomplicated; F12.90 Cannabis use, unspecified, uncomplicated; F31.9 Bipolar disorder, unspecified; E66.9 Obesity, unspecified; Y83.9 Surgical procedure, unspecified as the cause of abnormal reaction of the patient, or of later complication, without mention of misadventure at the time of the procedure; Z68.33 Body mass index [BMI] 33.0-33.9, adult; Y92.89 Other specified places as the place of occurrence of the external cause; Z98.1 Arthrodesis status; Z88.5 Allergy status to narcotic agent; Z88.8 Allergy status to other drugs, medicaments and biological substances; Z90.710 Acquired absence of both cervix and uterus; Z91.048 Other nonmedicinal substance allergy status; Z83.3 Family history of diabetes mellitus; Z82.49 Family history of ischemic heart disease and other diseases of the circulatory system; Z80.9 Family history of malignant neoplasm, unspecified
CPT/HCPCS: 36415; 71045; 72131; 80048; 80076; 85025; 85651; 86140; 87040; 90471; 90756; J0878; Q2035

== ENCOUNTER → 2018-05-19 | Outpatient (CLI) | payer BC ==
[2018-05-09 11:00] VITALS: BP 112/47
== END | disposition home or self-care (01) ==
LOC: PMGWOUND 07:53
PROVIDERS: ATTEND Emergency Medicine Undersea and Hyperbaric Medicine
DX: T81.31XD Disruption of external operation (surgical) wound, not elsewhere classified, subsequent encounter (principal); F17.210 Nicotine dependence, cigarettes, uncomplicated; F31.9 Bipolar disorder, unspecified; F41.9 Anxiety disorder, unspecified; J44.9 Chronic obstructive pulmonary disease, unspecified; M19.90 Unspecified osteoarthritis, unspecified site; K21.9 Gastro-esophageal reflux disease without esophagitis; Z90.710 Acquired absence of both cervix and uterus; Z85.41 Personal history of malignant neoplasm of cervix uteri; E66.9 Obesity, unspecified; Z68.33 Body mass index [BMI] 33.0-33.9, adult; Y83.8 Other surgical procedures as the cause of abnormal reaction of the patient, or of later complication, without mention of misadventure at the time of the procedure
CPT/HCPCS: 99214; G0463